=== PATIENT | male | born 1985 | race Caucasian/White ===

== ENCOUNTER 2023-12-24 06:41 | Inpatient (IN) | payer BC, SELFPAY ==
[2023-12-23 07:02] VITALS: BMI 23.6
[2023-12-23 09:00] LABS: Hematocrit 40.7 % (39.0-52.0); Hemoglobin 13.7 g/dL (13.0-18.0); Mean Corp Hgb Conc. 33.7 g/dL (33.0-37.0); Mean Corpuscular Volume 95.1 fL (80.0-94.0); Mean Platelet Volume 9.6 fL (7.4-10.4); Platelet Count 286 10^3/uL (130-400); Red Blood Cell Count 4.28 10^6/uL (4.70-6.10); Red Cell Dist. Width 11.9 % (11.5-14.5); White Blood Cell Count 4.6 10^3/uL (4.8-10.8)
[2023-12-23 09:24] LABS: Glycohemoglobin (HgbA1c) 5.5 % (4.0-5.6)
[2023-12-23 09:35] LABS: ALT (SGPT) 84 U/L (0-50); AST (SGOT) 47 U/L (17-59); Albumin 3.9 g/dl (3.5-5.0); Alkaline Phosphatase 93 U/L (38-126); Blood Urea Nitrogen 13 mg/dl (9-20); Calcium 9.1 mg/dl (8.4-10.2); Carbon Dioxide 28 mmol/L (22-30); Chloride 106 mmol/L (98-107); Estimated Creatinine Clearance > 125 ml/min; Glucose 115 mg/dl (70-99); Potassium 4.2 mmol/L (3.5-5.1); Sodium 139 mmol/L (135-145); Total Bilirubin 0.4 mg/dl (0.2-1.3); Total Protein 6.5 g/dl (6.3-8.2); eGFR > 60.00
[2023-12-24] VITALS (12 sets, daily range): BP systolic 108–132; BP diastolic 72–90; BMI 23.6
[2023-12-24] MEDS: ENTEREG 12 MG PO (10:52)
[2023-12-24] MEDS: TYLENOL 1000 MG PO (10:52)
[2023-12-24] MEDS: HEPARIN 5000 UNITS SC (10:52)
[2023-12-24] MEDS: NORMOSOL-R 1000 IV ×2 (11:11→17:17)
--- NOTE | 2023-12-24 16:11 | W.IMMPOSTOP ---
Surgical Immed Post Op Note
-
Primary Surgeon: Hector Mcneill MD
Clinical Appeals Auditor: SY Holley
Pre-op Diagnosis: Recurrent sigmoid divertiulitis
Post-op Diagnosis: Same
Procedure Performed: Robotic sigmoid colectomy with intracorporeal anastomosis
Anesthesia Type: GET
Specimen / Cultures: Sigmoid colon (suture is proximal)
Estimated Blood Loss: 10cc
Complications: None
Operative Findings: Chronic sigmoid diverticulitis
Small right inguinal hernia
28mm EEA
Normal leak test
Patient's family updated in waiting room.
[2023-12-24] MEDS: ZOFRAN 4 MG IV (17:14)
[2023-12-24] MEDS: DILAUDID 0.25 MG IV (17:16)
--- NOTE | 2023-12-24 18:01 | PTCARENOTE ---
Patient received from PACU in bed; IVF infusing; Patient on room air currently; Complaining of 3-4/10 pain in abdomen; Surgical site assessed; Murrell catheter in place; Call monreal within reach; Patient and family oriented to unit; Bed in lowest
position with wheels locked; Safety maintained
[2023-12-24] MEDS: TORADOL 15 MG IV ×2 (18:07→23:58)
[2023-12-24] MEDS: WELLBUTRIN SR (12 hour sustained release) 150 MG PO (20:07)
[2023-12-24] MEDS: TYLENOL 650 MG PO ×2 (20:07→23:58)
[2023-12-25 03:05] VITALS: BP 111/73
[2023-12-25] MEDS: TYLENOL 650 MG PO ×3 (03:21→11:50)
[2023-12-25] MEDS: NORMOSOL-R 1000 IV (03:21)
[2023-12-25] MEDS: TORADOL 15 MG IV ×2 (06:12→11:50)
[2023-12-25 06:13] LABS: % Basophils 0.1 % (0-2); % Immature Granulocytes 0.4 % (0-0.5); % Lymphocytes 10.6 % (20.5-51.1); % Monocytes 7.6 % (1.7-9.3); % Neutrophils 81.3 % (42.2-75.2); Absolute Lymphocytes 0.9 10^3/uL (1.2-3.4); Absolute Monocytes 0.7 10^3/uL (0.1-0.6); Absolute Neutrophils 6.9 10^3/uL (1.4-6.5); Hematocrit 37.3 % (39.0-52.0); Hemoglobin 12.9 g/dL (13.0-18.0); Mean Corp Hgb Conc. 34.6 g/dL (33.0-37.0); Mean Corpuscular Hgb 32.2 pg (27.0-31.0); Mean Platelet Volume 9.3 fL (7.4-10.4); Nucleated Red Blood Cells % 0 % (-); Platelet Count 257 10^3/uL (130-400); Red Blood Cell Count 4.01 10^6/uL (4.70-6.10); Red Cell Dist. Width 11.5 % (11.5-14.5); White Blood Cell Count 8.5 10^3/uL (4.8-10.8)
[2023-12-25 06:22] VITALS: BMI 22.4
[2023-12-25 06:40] LABS: Blood Urea Nitrogen 10 mg/dl (9-20); Calcium 8.2 mg/dl (8.4-10.2); Carbon Dioxide 24 mmol/L (22-30); Chloride 103 mmol/L (98-107); Estimated Creatinine Clearance > 125 ml/min; Glucose 102 mg/dl (70-99); Potassium 4.4 mmol/L (3.5-5.1); Sodium 132 mmol/L (135-145); eGFR > 60.00
[2023-12-25 07:40] VITALS: BP 114/72
[2023-12-25] MEDS: ENTEREG 12 MG PO (08:29)
[2023-12-25] MEDS: WELLBUTRIN SR (12 hour sustained release) 150 MG PO (08:30)
[2023-12-25 11:05] VITALS: BP 120/81
--- NOTE | 2023-12-25 12:24 | W.PN.GS2 ---
Addendum entered and electronically signed by Anshu Cordon MD 12/25/23 12:30:
I saw and examined the patient.
The Mail Room Clerk's note was reviewed and I agree with the note.
Comment: Doing excellent. Pain controlled, ambulating, pain controlled passing flatus. Exam approp, incisions cdi. Plan to adv diet ad poss DC home later today if no issues.
Original Note:
Today's Communication / Plan
-
Advance diet
Dispo planning
Assessment / Plan
-
38 yo male with h/o diverticulitis now POD #1 robotic sigmoid colectomy
AFVSS
Labs stable post op
--Advance diet
--OOB/Increase activity
--Remove amaya for voiding trial today
--Continue Bupropion at home dosage
--Analgesics with Tylenol, Toradol, Oxycodone and Dilaudid
--Lovenox 40mg sq for VTE ppx
--Dicharge later today vs tomorrow pending patient course and tolerance of diet
Subjective Data
-
Date of Service: December 25, 2023
Patient seen and examined at bedside with Dr. Cordon. Denies n/v. Passing flatus. Pain well managed.
Objective Data
-
Intake and Output
12/24/23 12/25/23 12/26/23
06:59 06:59 06:59
Intake Total 1540 / 1540 200 / 200
Output Total 1999 / 1999 350 / 350
Balance -460 / -460 -150 / -150
Intake:
Oral fluids 240 / 240
IV fluids (Total) 1300 / 1300 200 / 200
Normosal 100 / 100
Output:
Urine, Amaya 1999 / 1999 350 / 350
Vital Signs
Temp Pulse Resp BP Pulse Ox
97.8 F 79 16 120/81 99
12/25/23 11:05 12/25/23 11:05 12/25/23 11:05 12/25/23 11:05 12/25/23 11:05
Lab Results
12/25/23 05:16
12/25/23 05:16
Calcium 8.2 mg/dl (8.4-10.2) L 12/25/23 05:16
Total Bilirubin 0.4 mg/dl (0.2-1.3) 12/23/23 06:36
AST 47 U/L (17-59) 12/23/23 06:36
ALT 84 U/L (0-50) H 12/23/23 06:36
Alkaline Phosphatase 93 U/L (38-126) 12/23/23 06:36
Total Protein 6.5 g/dl (6.3-8.2) 12/23/23 06:36
Albumin 3.9 g/dl (3.5-5.0) 12/23/23 06:36
Physical Exam
-
NAD
ABD soft, mild distention, [employer]
Incisions clear, dry, intact glue
--- NOTE | 2023-12-25 12:41 | CM ---
IA completed with pt.
Pt is a 38yr old admitted for robotic sigmoid cloectomy
Pt lives in a multi level home with his and their 2 children.
Pt is indep. at baseline and has no current/hx of DME/VN/SNF.
PCP; Mell Lara
Pharm; [facility]
PLAN; Return to home with no needs
[2023-12-25] MEDS: NORMOSOL-R IV (13:14)
--- NOTE | 2023-12-25 14:52 | W.DCSUMMARY ---
Discharge Summary
Discharge Data
Date of Admission: 12/24/23
Date of Discharge: 12/25/23
-
Pending Results: No
Hospital Course
This is a 38 yo male with a history of chronic mid to distal sigmoid diverticulitis who presented for surgical management with robotic sigmoid colectomy. He tolerated the procedure well without complication. He was able to have diet advanced in the
immediate post operative period which was well tolerated. Pain was minimal and well controlled post operatively prior to discharge. He was able to void without difficulty after removal of the perioperative Murrell. He was discharged to home in good
condition with family with outpatient follow up arranged.
Discharge Plan
-
Patient Disposition: Home (Routine Discharge)
Discharge Diagnosis/Procedures: robotic sigmoid colectomy
Condition: Good
Diet: Low Fiber
Activity: No strenuous activity
Additional Activity: Do not lift more than 10lbs (gallon of milk) for the next 3-4 weeks
Driving Restrictions: Drive once off [place], comfortable twisting
Bathing Restrictions: OK to Shower
Wound Care: Ok to wash your incisions with soap and water. Do not scrub or pick off glue.
Activity Restrictions/Additional Instructions:
Call your surgeon if you have a fever >100.5, nausea and vomiting, or worsening pain
Instructions: Low Fiber Diet
Referrals:
Song Mcneill MD [Active] - in three to four weeks
Mell Lara DO [Family Provider] -
Prescriptions:
New
acetaminophen [acetaminophen] 325 mg tablet
650 mg PO Q4HPRN PRN (Reason: mild pain) Qty: 1 0RF
ibuprofen 200 mg tablet
400 - 600 mg PO Q6HPRN PRN (Reason: moderate pain) Qty: 1 0RF
tramadol 50 mg tablet
25 - 50 mg PO Q6HPRN PRN (Reason: severe pain/breakthrough pain) Qty: 15 0RF
Continued
bupropion HCl 150 mg Tablet Sustained-Release 12 Hr
150 mg PO BID
Discontinued
metronidazole 500 mg Tablet
500 mg PO .
Rx Instructions:
Pre medication for surgery
neomycin 500 mg Tablet
1,000 mg PO .
Rx Instructions:
Pre medication for surgery
Sutab 1.479-0.188- 0.225 gram Tablet
0 tab PO DIRECTED
Rx Instructions:
Bowel prep for surgery
Discharge Orders:
Discharge Patient (As Directed); Ordered 12/25/23
Ordered By: Cleopatra Lo
[2023-12-25 15:08] VITALS: BP 112/75
== END 2023-12-25 15:21 | disposition home or self-care (01) | DRG 331 ==
LOC: 2 SOUTH 06:41
PROVIDERS: ADMITTING PHYSICIAN Surgery; FAMILY PHYSICIAN Family Medicine
PROC: 0DTN4ZZ Resection of Sigmoid Colon, Percutaneous Endoscopic Approach (ICD-10-PCS; 2023-12-24)
PROC: 8E0W4CZ Robotic Assisted Procedure of Trunk Region, Percutaneous Endoscopic Approach (ICD-10-PCS; 2023-12-24)
PROC: 0DJD8ZZ Inspection of Lower Intestinal Tract, Via Natural or Artificial Opening Endoscopic (ICD-10-PCS; 2023-12-24)
DX: K57.32 Diverticulitis of large intestine without perforation or abscess without bleeding (principal); K40.90 Unilateral inguinal hernia, without obstruction or gangrene, not specified as recurrent
CPT/HCPCS: 88307; 36415; 80048; 80053; 83036; 85025; 85027; 86850; 86900; 86901; 93005; 99406; J1335